=== PATIENT | male | born 1980 | race African-American/Black ===

== ENCOUNTER 2017-02-26 14:05 | Emergency (ER) | payer SELFPAY ==
[~2017-02-26] VITALS: Ht 165.1 cm; Wt 70.3 kg
[2017-02-26 14:15] VITALS: BP 131/88
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
[2017-02-26] MEDS ORDERED: CYCL10TA2 PO (15:52)
[2017-02-26] MEDS ORDERED: NAPR500T8 PO (15:52)
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
== END 2017-02-26 16:01 | disposition home or self-care (01) ==
LOC: ER 14:05
DX: S30.0XXA Contusion of lower back and pelvis, initial encounter (principal); S60.222A Contusion of left hand, initial encounter; K02.9 Dental caries, unspecified; I10 Essential (primary) hypertension; Y08.89XA Assault by other specified means, initial encounter; Y93.89 Activity, other specified; Y92.89 Other specified places as the place of occurrence of the external cause; Y99.8 Other external cause status
CPT/HCPCS: 72100; 73120; 99284

== ENCOUNTER 2017-09-30 07:55 | Emergency (ER) | payer SELFPAY ==
[2017-09-30] MEDS: IV NORMAL SALINE 1000ML BAG 1,000 ML IV (09:04)
[2017-09-30] MEDS: levETIRAcetam 500 MG TABLET PO (09:07)
[2017-09-30 09:28] LABS: ANION GAP 6 (6-14); BASO % 0 % (0-3); BLOOD UREA NITROGEN 11 mg/dL (8-26); BUN/CREATININE RATIO 9 (6-20); CALCIUM 8.7 mg/dL (8.5-10.1); CARBON DIOXIDE 30 mmol/L (21-32); CHLORIDE 102 mmol/L (98-107); CREATININE 1.2 mg/dL (0.7-1.3); EOS # 0.1 x10^3/uL (0.0-0.7); EOS % 1 % (0-3); GFR 82.4; GLUCOSE 96 mg/dL (70-99); HEMATOCRIT 44.2 % (39.0-53.0); LYMPH # 0.8 x10^3/uL (1.0-4.8); LYMPH % 7 % (24-48); MEAN CORPUSCULAR HEMOGLOBIN 30 pg (25-35); MEAN CORPUSCULAR HGB CONC 34 g/dL (31-37); MEAN CORPUSCULAR VOLUME 89 fL (79-100); MONO # 0.5 x10^3/uL (0.0-1.1); MONO % 4 % (0-9); NEUT # 10.6 x10^3uL (1.8-7.7); NEUT % 88 % (31-73); PLATELET COUNT 228 x10^3/uL (140-400); POTASSIUM 4.8 mmol/L (3.5-5.1); RED BLOOD COUNT 4.99 x10^6/uL (4.30-5.70); RED CELL DISTRIBUTION WIDTH 14.8 % (11.5-14.5); SODIUM 138 mmol/L (136-145); WHITE BLOOD COUNT 12.1 x10^3/uL (4.0-11.0)
[2017-09-30 09:29] LABS: ADD MAN DIFF? YES
[2017-09-30 09:30] LABS: BILIRUBIN,URINE NEGATIVE (NEG); CLARITY,URINE CLEAR; COLOR,URINE YELLOW; GLUCOSE,URINE NEGATIVE (NEG); NITRITE,URINE NEGATIVE (NEG); PH,URINE 5.5; PROTEIN,URINE 30 mg/dL (NEG-TRACE); UROBILINOGEN,URINE 0.2 mg/dL (0.2 mg/dL)
[2017-09-30 09:34] LABS: ALBUMIN 3.6 g/dL (3.4-5.0); ALBUMIN/GLOBULIN RATIO 0.9 (1.0-1.7); ALK PHOS 59 U/L (46-116); ALT (SGPT) 28 U/L (16-63); AST (SGOT) 25 U/L (15-37); TOTAL BILIRUBIN 0.4 mg/dL (0.2-1.0); TOTAL PROTEIN 7.7 g/dL (6.4-8.2)
[2017-09-30 09:37] LABS: BARBITURATES NEG (NEG); BENZODIAZEPINES NEG (NEG); CANNABINOIDS NEG (NEG); COCAINE NEG (NEG); METHADONE NEG (NEG); OPIATES NEG (NEG); PHENCYCLIDINE NEG (NEG)
[2017-09-30 09:42] LABS: AMPHETAMINE/METHAMPHETAMINE NEG (NEG)
[2017-09-30 09:42] LABS: ETHANOL < 10 mg/dL (0-10)
[2017-09-30 09:43] LABS: ETHANOL, URINE NEG (NEG)
[2017-09-30 09:55] LABS: LACTIC ACID 3.3 mmol/L (0.4-2.0)
[2017-09-30 09:56] LABS: BACTERIA,URINE 0 /HPF (0-FEW); RBC,URINE 0 /HPF (0-2); WBC,URINE 0 /HPF (0-4)
[2017-09-30 09:57] LABS: SQUAMOUS EPITHELIAL CELL,UR OCC /LPF
[2017-09-30 13:32] LABS: % BANDS 3 % (0-9); % LYMPHS 5 % (24-48); % MONOS 1 % (0-10); % SEGS 91 % (35-66); PLT ESTIMATE ADEQUATE (ADEQUATE)
[2017-10-02 10:23] LABS: LEVETIRACETAM None Detected ug/mL (10.0-40.0)
== END 2017-09-30 12:14 | disposition home or self-care (01) ==
LOC: ER 12:14
DX: G40.909 Epilepsy, unspecified, not intractable, without status epilepticus (principal); I10 Essential (primary) hypertension; Z91.013 Allergy to seafood
CPT/HCPCS: 36415; 80053; 80177; 80307; 81001; 83605; 85007; 85025; 96374; 99284; G0480; J2060; J7030

== ENCOUNTER 2017-11-05 06:15 | Emergency (ER) | payer SELFPAY ==
[2017-11-05 06:28] LABS: ADD MAN DIFF? NO
[2017-11-05 06:30] LABS: POC GLUCOSE 205 mg/dL (70-99)
[2017-11-05 06:38] LABS: BARBITURATES NEG (NEG); BENZODIAZEPINES NEG (NEG); CANNABINOIDS NEG (NEG); COCAINE NEG (NEG); METHADONE NEG (NEG); OPIATES NEG (NEG); PHENCYCLIDINE NEG (NEG)
[2017-11-05 06:40] LABS: AMPHETAMINE/METHAMPHETAMINE NEG (NEG); ETHANOL, URINE NEG (NEG)
[2017-11-05] MEDS: levETIRAcetam 1,000 MG in IV DEXTROSE 5% 100ML 100 ML IV (06:41)
[2017-11-05] MEDS: IV NORMAL SALINE 1000ML BAG 1,000 ML IV ×3 (06:41→08:40)
[2017-11-05 06:44] LABS: ETHANOL < 10 mg/dL (0-10)
[2017-11-05 06:54] LABS: ANION GAP 37 (6-14); BLOOD UREA NITROGEN 18 mg/dL (8-26); CALCIUM 9.4 mg/dL (8.5-10.1); CHLORIDE 99 mmol/L (98-107); CREATININE 1.7 mg/dL (0.7-1.3); GFR 55.1; GLUCOSE 243 mg/dL (70-99); POTASSIUM 4.4 mmol/L (3.5-5.1); SODIUM 141 mmol/L (136-145)
[2017-11-05 06:58] LABS: BASO # 0.1 x10^3/uL (0.0-0.2); BASO % 1 % (0-3); EOS # 0.3 x10^3/uL (0.0-0.7); EOS % 2 % (0-3); HEMATOCRIT 47.3 % (39.0-53.0); HEMOGLOBIN 14.7 g/dL (13.0-17.5); LYMPH # 7.2 x10^3/uL (1.0-4.8); LYMPH % 49 % (24-48); MEAN CORPUSCULAR HEMOGLOBIN 30 pg (25-35); MEAN CORPUSCULAR HGB CONC 31 g/dL (31-37); MEAN CORPUSCULAR VOLUME 98 fL (79-100); MONO # 1.3 x10^3/uL (0.0-1.1); MONO % 9 % (0-9); NEUT # 5.8 x10^3uL (1.8-7.7); NEUT % 40 % (31-73); PLATELET COUNT 234 x10^3/uL (140-400); RED BLOOD COUNT 4.84 x10^6/uL (4.30-5.70); RED CELL DISTRIBUTION WIDTH 15.4 % (11.5-14.5); WHITE BLOOD COUNT 14.8 x10^3/uL (4.0-11.0)
[2017-11-05 07:06] LABS: CARBON DIOXIDE 5 mmol/L (21-32)
[2017-11-05 07:49] LABS: SALIC 4.3 mg/dL (2.8-20.0)
[2017-11-05 07:50] LABS: ACETAMIN < 2 mcg/ml (10-30)
[2017-11-05 10:28] LABS: ANION GAP 8 (6-14); BLOOD UREA NITROGEN 16 mg/dL (8-26); CALCIUM 7.7 mg/dL (8.5-10.1); CARBON DIOXIDE 24 mmol/L (21-32); CHLORIDE 109 mmol/L (98-107); CREATININE 1.4 mg/dL (0.7-1.3); GLUCOSE 87 mg/dL (70-99); POTASSIUM 4.2 mmol/L (3.5-5.1); SODIUM 141 mmol/L (136-145)
== END 2017-11-05 11:54 | disposition home or self-care (01) ==
LOC: ER 06:15
DX: R56.9 Unspecified convulsions (principal); M50.323 Other cervical disc degeneration at C6-C7 level; R61 Generalized hyperhidrosis; R00.0 Tachycardia, unspecified; I10 Essential (primary) hypertension; Z91.013 Allergy to seafood
CPT/HCPCS: 36415; 51701; 70450; 72125; 80048; 80307; 80329; 82962; 85025; 96365; 99285-25; G0480; G6039; J1953; J7030